=== PATIENT | female | born 1970 | race African-American/Black ===

== ENCOUNTER 2025-04-15 16:46 | Emergency (ER) | payer BC, SELFPAY ==
--- OUTSIDE RECORDS SUMMARY | 2024-04-27 04:38 | XMS_ITS | Continuity of Care Document ---
Author Organization [facility] Address [address] [place] [address] Phone Care Team Providers Care Society Editor Name Role Phone Grace Deluna MD Unavailable Unavailable Advance Directives Directive Yes / No Effective Date File Name No Information Encounters Encounter Description Practice Location Reason(s) For Visit Diagnoses Date Provider Providers Copied on Encounter [facility], [address], [place], [place], [id number], [place] tel:[phone] [facility] No Information Mikie Edwards. [address], [address], [place], [place], [id number], [place]. tel:[phone] Family History Family Member Type Diagnosis Age At Onset No Information Payers Payer name Insurance type Covered libertarian ID Authoriza tion(s) No Information Social History Type Description Quantity Date Captured Comments Sex Female Smoking Status No Information Chief Complaint And Reason For Visit No Information Reason For Referral Reason For Referral No Information Plan Of Treatment Date Type Action Status Appointment Juana Stewart BOOKED History Of Present Illness Encounter Date Complaint History Of Prese nt Illness No Information Functional Status Date Functional Assessmen t No Information Instructions Date Instruction Additional Infor mation No Information Assessments Type Assessment Date No Information Patient Care Teams Name Effective Dates (start - stop) Status Members No Information
--- OUTSIDE RECORDS SUMMARY | 2024-04-27 04:38 | XMS_ITS | Continuity of Care Document ---
Author Organization [facility] Address [address] [place] [address] Phone Care Team Providers Care Grape Picker Name Role Phone Grace Deluna MD Unavailable Unavailable Advance Directives Directive Yes / No Effective Date File Name No Information Encounters Encounter Description Practice Location Reason(s) For Visit Diagnoses Date Provider Providers Copied on Encounter [facility], [address], [place], [place], [id number], [place] tel:[phone] [facility] No Information Mikie Edwards. [address], [address], [place], [place], [address], [place]. tel:[phone] Family History Family Member Type Diagnosis Age [...]
[2025-04-15 16:46] VITALS: BP 136/83; PULSE 60; RESP 15; TEMP 36.4; O2SAT 14
[2025-04-15 17:01] VITALS: O2SAT 100
--- NOTE | 2025-04-15 17:37 | ED_ITS ---
HPI - Allergic Reaction General Chief complaint: Allergic Reaction Stated complaint: ALLERGIC REACTION Time Seen by Provider: 04/15/25 16:54 History of Present Illness HPI narrative: Patient is a 54-year-old female who presents to the ER after consuming shellfish at a restaurant. She reports she has a known allergy to shellfish so she carries an EpiPen. Patient reports shortly afterwards she started experiencing lip and throat swelling along with nausea and vomiting. She reports she used her EpiPen and did not experience much relief afterwards. Patient's reports EMS brought her to the ER and gave her Benadryl and Zofran during transport. She endorses a history of high blood pressure, high cholesterol, and resolved asthma. Patient denies any chest pain, difficulty swallowing, or feelings of excessive swelling. Related Data Allergies Allergy/AdvReac Type Severity Reaction Status Date / Time shellfish derived Allergy Severe Anaphylaxis Verified 04/15/25 16:54 Review of Systems Review of Systems: All systems reviewed & are unremarkable except as noted in HPI and below Exam Narrative: GENERAL: Well appearing, well-nourished, non-toxic, in no acute distress. HEAD: Normocephalic, atraumatic. No visible throat swelling NECK: Supple. No adenopathy, no masses. RESPIRATORY: Airway patent, respirations mildly labored. Mild stridor, mild wheezing CARDIOVASCULAR: Regular rate and rhythm without murmurs, rubs, or gallops. Peripheral pulses 2+ and equal bilaterally. ABDOMINAL: Soft, nontender, nondistended, no hepatosplenomegaly. Normoactive BS. MUSCULOSKELETAL: Moves all extremities. Strength/ROM intact without gross deformities. SKIN: Warm, dry, normal color. No rashes. NEURO: A&O X3. Speech clear. Cranial nerves II-XII intact. No ataxic movements. PSYCHIATRIC: Appropriate mood and affect. Normal interaction. Course Vital Signs Vital signs: Vital Signs Temperature 36.4 C 04/15/25 16:46 Pulse Rate 60 04/15/25 16:46 Respiratory Rate 15 04/15/25 16:46 Blood Pressure 136/83 04/15/25 16:46 Pulse Oximetry 14 L 04/15/25 16:46 Oxygen Delivery Autopap 04/15/25 16:46 Temperature 36.7 C 04/15/25 19:06 Pulse Rate 66 04/15/25 19:06 Respiratory Rate 15 04/15/25 19:06 Blood Pressure 154/85 H 04/15/25 19:06 Pulse Oximetry 100 04/15/25 19:06 Oxygen Delivery Room Air 04/15/25 17:01 MDM - Allergic Reaction MDM Narrative Medical decision making narrative: Patient is a 54-year-old female who presents to the ER after consuming shellfish at a restaurant. She reports she has a known allergy to shellfish so she carries an EpiPen. Patient reports shortly afterwards she started experiencing lip and throat swelling along with nausea and vomiting. She reports she used her EpiPen and did not experience much relief afterwards. Patient's reports EMS brought her to the ER and gave her Benadryl and Zofran during transport. She endorses a history of high blood pressure, high cholesterol, and resolved asthma. Patient denies any chest pain, difficulty swallowing, or feelings of excessive swelling. Labs Ordered: None necessary Imaging Ordered: None necessary Medications Ordered: Benadryl IV, Decadron IV, 1 L normal saline IV bolus, DuoNeb, Pepcid IV Diagnosis: Allergic reaction Patient Education/Shared MDM: Upon evaluation of the EpiPen patient used it was noted the pen was a ?show dog trainer and did not contain medication. This makes sense as to why patient reports she did not feel better after using her EpiPen at the restaurant. Upon reexamination patient endorses significant improvement of symptoms following medication administration. Patient strongly advised to maintain hydration status upon discharge and follow-up with her PCP as soon as possible. She will be discharged home with a prescription for a Medrol Dosepak and EpiPen. Strict return precautions provided. Patient verbalized understanding and is in agreement with plan. Vital signs stable at time of discharge. All questions answered.: Differential Diagnosis Differential diagnosis: Likely anaphylaxis, allergic reaction, angioedema and urticaria Discharge Plan Discharge Clinical Impression: Allergic reaction, Urticaria Patient Disposition: Home Condition: Stable Instructions: Antibiotic Form, Food Allergy (ED), Anaphylaxis (ED) Additional Instructions: Please return to the ER with any worsening symptoms. Follow-up with primary care provider as needed for re-evaluation. Take all medications as prescribed, including regularly scheduled medications. You are prescribed oral and inhaled steroids to help decrease inflammation. Please use your epinephrine pen as needed for further anaphylaxis reactions. Patient Language: Panamanian Prescriptions: New methylprednisolone [Medrol (Aditya)] 4 mg tablets,dose pack See Rx Instructions PO .COMPLEX Qty: 21 0RF Rx Instructions: for 6 days albuterol sulfate 90 mcg/actuation HFA aerosol inhaler 2 puff inhalation QID Qty: 6.7 0RF epinephrine [EpiPen 2-Aditya] 0.3 mg/0.3 mL auto-injector 0.3 mg IM Q5-15M PRN (Reason: anaphylaxis) Qty: 2 0RF Rx Instructions: do not exceed 3 doses per episode Follow-up/Referrals: Veto Graves MD [Physician, Family Practice] Referral Note: primary care provider UNKNOWN,DOCTOR [Primary Care Provider] Stand Alone Forms: Work/School Release IP Time of Disposition: 19:21
--- OUTSIDE RECORDS SUMMARY | 2025-04-15 17:44 | XMS_ITS | Encounter Summary ---
Author Organization [facility] Address 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
--- OUTSIDE RECORDS SUMMARY | 2025-04-15 17:44 | XMS_ITS | Encounter Summary ---
Author Organization [facility] Address [address] [place] [address] Care Team Providers Care Abrasive Grinder Name Role Phone Grace Deluna MD Primary Care Prov ider Encounter Details Date Type Department Care Team (Latest Contact Info) Description 08/07/2004 Inpatient Historical HIS PATIENT IN A BED Ирина Sy MD NO ADDRESS ON FILE Alyson Astorga, [facility] FET/PLAC PROB NEC-DELIVERED (Primary Dx) Social History Tobacco Use Types Packs/Day Years Used Date Smoking Tobacco: Never Assessed Comments Unknown Sex and Gender Information Value Date Recorded Sex Assigned at Not on file Legal Sex Female 5:04 AM TAPPER HAND Gender Identity Not on file Sexual Orientation Not on file documented as of this encounter Plan of Treatment Not on file documented as of this encounter Procedures Procedure Name Priority Date/Time Associated Diagnosis Comments CBC WITH DIFFERENTIAL Routine 08/08/2004 10:30 PM TAPPER HAND CBC WITH DIFFERENTIAL Routine 08/08/2004 10:30 PM TAPPER HAND CBC WITH DIFFERENTIAL Routine 08/07/2004 10:46 AM TAPPER HAND CBC WITH DIFFERENTIAL Routine 08/07/2004 10:46 AM TAPPER HAND URINALYSIS W/REFLEX MICROSCOPIC Routine 08/07/2004 10:46 AM TAPPER HAND URIC ACID Routine 08/07/2004 10:46 AM TAPPER HAND AST Routine 08/07/2004 10:46 AM TAPPER HAND LACTATE DEHYDROGENASE Routine 08/07/2004 10:46 AM TAPPER HAND documented in this encounter Results * (ABNORMAL) CBC WITH DIFFERENTIAL (08/08/2004 10:30 PM TAPPER HAND) NEUTROPHILS 77(H) 45 - 70 % INTERFAC E SYSTEM LYMPHOCYTES 19 16 - 45 % INTERFAC E SYSTEM MONOCYTES 4 3 - 13 % INTERFACE SYSTEM EOSINOPHILS 0 0 - 7 % INTERFAC E SYSTEM BASOPHILS 0 0 - 2 % INTERFACE SYSTEM NEUTROPHIL ABSOLUTE 7.08(H) 1.90 - 7.00 K/uL INTERFACE SYSTEM LYMPHOCYTE ABSOLUTE 1.78 0.70 - 4.50 K/uL INTERFACE SYSTEM MONOCYTE ABSOLUTE 0.34 0.10 - 1.30 K/uL INTERFACE SYSTEM EOSINOPHIL ABSOLUTE 0.03 0.00 - 0.70 K/uL INTERFACE SYSTEM BASOPHILS ABSOLUTE 0.01 0.00 - 0.20 K/uL INTERFACE SYSTEM 08/08/2004 10:3 0 PM TAPPER HAND Alyson Bita Astorga [employer] COURTESY CLERK HEMATOLOGY ORDERABLES Fi nal Result INTERFACE SYSTEM Refer to clinic/hospital department * (ABNORMAL) CBC WITH DIFFERENTIAL (08/08/2004 10:30 PM TAPPER HAND) WBC 9.2 4.0 - 9.8 K/uL INTERFACE SYSTEM RBC 3.98 3.90 - 4.90 M/uL INTERFACE SYSTEM HEMOGLOBIN 10.8(L) 11.8 - 14.8 g/dL INTERFACE SYSTEM HEMATOCRIT 33.3(L) 35.5 - 44.0 % INTERFACE SYSTEM MCV 83.7 82.0 - 99.0 fL INTERFACE SYSTEM MCH 27.1(L) 27.2 - 32.6 pg INTERFACE SYSTEM MCHC 32.4 31.5 - 35.5 % INTERFACE SYSTEM RDW 14.3 11.5 - 14.5 % INTERFACE SYSTEM RDW-STDEV 44.0 37.1 - 48.7 fL INTERFACE SYSTEM PLATELETS 217 140 - 350 K/uL INTERFACE SYSTEM MPV 9.1(L) 9.3 - 12.4 fL INTERFACE SYSTEM 08/08/2004 10:3 0 PM TAPPER HAND Alyson Astorga [facility] HEMATOLOGY ORDERABLES Fi nal Result Performing Organization Address [facility]/ZIP Co de Phone Number INTERFACE SYSTEM Refer to clinic/hospital department * (ABNORMAL) URINALYSIS (08/07/2004 10:46 AM TAPPER HAND) COLOR UA Yellow INTERFACE SYSTEM CLARITY UA Slt. Cloudy(A) Clear INTERFACE SYSTEM SPECIFIC GRAVITY UA 1.025 1.001 - 1.035 INTERFACE SYSTEM PH UA 6.0 5.0 - 8.0 INTERFACE SYSTEM LEUKOCYTE ESTERASE UA 2+(A) Negative INTERFACE SYSTEM NITRITE UA Negative Negative INTERFACE SYSTEM PROTEIN UA 1+(A) Negative INTERFACE SYSTEM GLUCOSE UA Negative Negative INTERFACE SYSTEM KETONES UA Negative Negative INTERFACE SYSTEM UROBILINOGEN UA <1 <1 EU INTE RFACE SYSTEM BILIRUBIN UA Negative Negative INTERFA CE SYSTEM BLOOD UA Negative Negative INTERFACE SYSTEM WBC UA 31(H) 0 - 5 /HPF INTERFACE SYSTEM RBC UA 5(H) 0 - 4 /HPF INTERFACE SYSTEM BACTERIA UA 2+(A) None Seen /HPF INTERFACE SYSTEM EPITHELIAL CELLS, URINE Many /HPF INTERFACE SYSTEM 08/07/2004 10:4 6 AM TAPPER HAND Alyson Astorga [employer] STORE COURTESY CLERK URINE ORDERABLES Final R esult Performing Organization Address City/[facility] Co de Phone Number INTERFACE SYSTEM Refer to clinic/hospital department * (ABNORMAL) CBC WITH DIFFERENTIAL (08/07/2004 10:46 AM TAPPER HAND) NEUTROPHILS 79(H) 45 - 70 % INTERFAC E SYSTEM LYMPHOCYTES 17 16 - 45 % INTERFAC E SYSTEM MONOCYTES 3 3 - 13 % INTERFACE SYSTEM EOSINOPHILS 0 0 - 7 % INTERFAC E SYSTEM BASOPHILS 0 0 - 2 % INTERFACE SYSTEM NEUTROPHIL ABSOLUTE 6.94 1.90 - 7.00 K/uL INTERFACE SYSTEM LYMPHOCYTE ABSOLUTE 1.51 0.70 - 4.50 K/uL INTERFACE SYSTEM MONOCYTE ABSOLUTE 0.28 0.10 - 1.30 K/uL INTERFACE SYSTEM EOSINOPHIL ABSOLUTE 0.03 0.00 - 0.70 K/uL INTERFACE SYSTEM BASOPHILS ABSOLUTE 0.01 0.00 - 0.20 K/uL INTERFACE SYSTEM 08/07/2004 10:4 6 AM TAPPER HAND Alyson Fuentesyor [employer] STORE COURTESY CLERK HEMATOLOGY ORDERABLES Fi nal Result Performing Organization Address City/[facility] Co de Phone Number INTERFACE SYSTEM Refer to clinic/hospital department * (ABNORMAL) CBC WITH DIFFERENTIAL (08/07/2004 10:46 AM TAPPER HAND) WBC 8.8 4.0 - 9.8 K/uL INTERFACE SYSTEM RBC 4.21 3.90 - 4.90 M/uL INTERFACE SYSTEM HEMOGLOBIN 11.2(L) 11.8 - 14.8 g/dL INTERFACE SYSTEM HEMATOCRIT 35.8 35.5 - 44.0 % INTERFACE SYSTEM MCV 85.0 82.0 - 99.0 fL INTERFACE SYSTEM MCH 26.6(L) 27.2 - 32.6 pg INTERFACE SYSTEM MCHC 31.3(L) 31.5 - 35.5 % INTERFACE SYSTEM RDW 14.3 11.5 - 14.5 % INTERFACE SYSTEM RDW-STDEV 44.5 37.1 - 48.7 fL INTERFACE SYSTEM PLATELETS 244 140 - 350 K/uL INTERFACE SYSTEM MPV 9.2(L) 9.3 - 12.4 fL INTERFACE SYSTEM 08/07/2004 10:4 6 AM TAPPER HAND Alyson Sunshine Rizwan [employer]ORE COURTESY CLERK HEMATOLOGY ORDERABLES Fi nal Result Performing Organization Address [facility] Phone Number INTERFACE SYSTEM Refer to clinic/hospital department * URIC ACID (08/07/2004 10:46 AM TAPPER HAND) URIC ACID 4.1 2.3 - 6.6 mg/dL INTERFACE SYSTEM 08/07/2004 10:4 6 AM TAPPER HAND Alyson Sunshine [place] [employer] STORE COURTESY CLERK CHEMISTRY ORDERABLES Fin al Result Performing Organization Address City/[facility]/ZIP Co de Phone Number INTERFACE SYSTEM Refer to clinic/hospital department * LACTATE DEHYDROGENASE (08/07/2004 10:46 AM TAPPER HAND) LD (LACTATE DEHYDROGENASE) 152 135 - 214 U/L INTERFACE SYSTEM 08/07/2004 10:4 6 AM TAPPER HAND Alyson Bita Fuentesyor [employer] STORE COURTESY CLERK CHEMISTRY ORDERABLES Fin al Result Performing Organization Address City/[facility] de Phone Number INTERFACE SYSTEM Refer to clinic/hospital department * AST (08/07/2004 10:46 AM TAPPER HAND) AST 12 12 - 32 U/L INTERFAC E SYSTEM 08/07/2004 10:4 6 AM TAPPER HAND Alyson Fuentesyor [employer] STORE COURTESY CLERK CHEMISTRY ORDERABLES Fin al Result Performing Organization Address [facility] Phone Number INTERFACE SYSTEM Refer to clinic/hospital department documented in this encounter Visit Diagnoses Diagnosis Other specified and placental problems affecting management of mother, delivered- Primary documented in this encounter Care Teams Abrasive Grinder Relationship Specialty Start Date End Date Grace Deluna MD PCP - General Family Practice 11/26/18 04/06/24 documented as of this encounter
--- OUTSIDE RECORDS SUMMARY | 2025-04-15 17:44 | XMS_ITS | Encounter Summary ---
Author Organization [facility] Address [address] [place] [address] Care Team Providers Care Professional Nursing Assistant Name Role Phone Grace Deluna MD Primary Care Prov ider Encounter Details Date Type Department Care Team (Late st Contact Info) Description 07/11/2004 Outpatient Historical [facility] Maternal and Ground Floor S [facility] [address] [place] [id number] Julián Sneed MD [address] [place] [address] Social History Tobacco Use Types Packs/Day Years Used Date Smoking Tobacco: Never Assessed Comments Unknown Sex and Gender Information Value Date Recorded Sex Assigned at Not on file 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
--- OUTSIDE RECORDS SUMMARY | 2025-04-15 17:44 | XMS_ITS | Encounter Summary ---
Author Organization [facility] [employer] Address 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
--- OUTSIDE RECORDS SUMMARY | 2025-04-15 17:44 | XMS_ITS | Encounter Summary ---
Author Organization [facility] Address [address] [place] [address] Care Team Providers Care Breast Puller Name Role Phone Grace Deluna MD Primary Care Prov ider Encounter Details Date Type Department Care Team (Late st Contact Info) Description 08/07/2004 Outpatient Historical [facility] Maternal and Ground Floor S [facility] [address] [place] [address] Miguelito Alva MD NO ADDRESS ON FILE Social History Tobacco Use Types Packs/Day Years Used Date Smoking Tobacco: Never Assessed Comments Unknown Sex and Gender Information Value Date Recorded Sex Assigned at Not on file Legal Sex Female 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
--- OUTSIDE RECORDS SUMMARY | 2025-04-15 17:44 | XMS_ITS | Encounter Summary ---
Author Organization [facility] Address [address] [place] [address] Care Team Providers Care Medical File Clerk Name Role Phone Grace Deluna MD Primary Care Prov ider Encounter Details Date Type Department Care Team (Late st Contact Info) Description 06/06/2004 Outpatient Historical [facility] Maternal and Ground Floor S [facility] [address] [place] [phone] Julián Sneed MD [address] [place] [address] Social History Tobacco Use Types Packs/Day Years Used Date Smoking Tobacco: Never Assessed Comments Unknown Sex and Gender Information Value Date Recorded Sex Assigned at Not on file Legal Sex Female 5:04 AM CLOTH WINDER Gender Identity Not on file Sexual Orientation Not on file documented as of this encounter Plan of Treatment Not on file documented as of this encounter Visit Diagnoses Not on filedocumented in this encounter Care Teams Medical File Clerk Relationship Specialty Start Date End Date Grace Deluna MD PCP - General Family Practice 11/26/18 04/06/24 documented as of this encounter
--- OUTSIDE RECORDS SUMMARY | 2025-04-15 17:44 | XMS_ITS | Clinical Summary ---
Author Organization [facility] rofessional Office [place] Address [address] [place] [phone] Care Team Providers Care Assistant Corporation Counsel Name Role Phone Unavailable Primary Care Provider Unavailabl e Allergies Active Allergy Reactions Criticality Noted Date Comments Shellfish Containing Products Rash Low 2011 Medications amLODIPine (NORVASC) 5 mg tablet TAKE 1 TABLET(5 MG) BY MOUTH DAILY 90 Tablet 3 3 Active estradioL (Estring) 2 mg (7.5 mcg /24 hour) RingIndication s:Vaginal dryness Insert 1 Device (2 mg) vaginally every 90 days. 1 Ring 3 4 Active tirzepatide, weight loss, (Zepbound) 10 mg/0.5 mL Pen Injector Inject 10 mg by subcutaneous injection every 7 days. 2 mL 3 01/21/2024 12:39 PM CDT 4 Active estradioL (VAGIFEM) 10 mcg tablet Insert 1 (one) tablet into the vagina at bedtime twice weekly. Reasons: dyspareunia 8 Tablet 12 11/25/2024 2:54 PM CDT 4 Active EPINEPHrine (EPIPEN) 0.3 mg/0.3 mL Auto-Injector *Emergency Use* Inject 0.3 mL (0.3 mg) by intramuscular injection one time as needed for anaphylaxis. 2 Each 1 02/06/2024 3:59 PM CDT 4 Active tirzepatide, weight loss, (Zepbound) 12.5 mg/0.5 mL Pen Injector Inject 12.5 mg by subcutaneous injection every 7 days. 2 mL 1 02/06/2024 3:59 PM CDT 4 Active rosuvastatin (CRESTOR) 20 mg tablet Take 1 Tablet (20 mg) by mouth daily. 100 Tablet 4 11/25/2024 2:54 PM CDT 4 Active estradioL (ESTRACE) 0.01% (0.1 mg/g) vaginal cream Insert 1 gram into the vagina at bedtime twice weekly. 42.5 Gram 5 02/18/2025 3:03 PM CDT 5 Active Active Problems Problem Noted Date Diagnosed Date Seasonal allergic rhinitis 01/02/2018 Acute bilateral thoracic back pain 01/02/2018 Menopausal symptoms 04/20/2017 Refused influenza vaccine 08/30/2016 Encounter for routine adult medical exam with abnormal findings 08/30/2016 Benign hypertension 08/30/2016 Assessment & Plan (11/17/2016 9:54 PM CDT): Controlled. Continue current management with diet and exercise alone. Monitor BP. Assessment & Plan (09/15/2016 6:39 PM MUSIC CATALOGUER): Suboptimal control. Medications adjusted. Subacromial bursitis 08/30/2016 Assessment & Plan (11/17/2016 9:53 PM CDT): Improving. Continue current management. Assessment & Plan (09/15/2016 7:04 PM MUSIC CATALOGUER): Suboptimal control. Ibuprofen Mixed hyperlipidemia 08/30/2016 Assessment & Plan (09/15/2016 7:05 PM MUSIC CATALOGUER): Stable. Check labs Resolved Problems Problem Noted Date Diagnosed Date Resolved Date Abdominal wall pain 12/25/2016 04/18/20 17 Assessment & Plan (12/25/2016 2:17 PM CDT): Uncontrolled. See orders and patient instructions. Encounters Date Type Department Care Team Description 02/23/2025 External Device Data ST[facility] ABSTRACTION Provider, Abstract 02/03/2025 External Device Data ST[facility] ABSTRACTION Provider, Abstract 02/02/2025 External Device Data [facility] ABSTRACTION Provider, Abstract from Last 3 Months Immunizations Immunization Administration Dates Next Due (Qinec)(12 YR UP) COVID-19 VACCINE - EMERGENCY USE AUTHORIZATION, MRNA, [id number](PF) 30 MCG/0.3 ML IM SUSP 02/23/2021 Family History Medical History Relation Name Comments Healthy Brother 1 Healthy Brother 2 Healthy Daughter Diabetes Father Hypertension Father Unknown Maternal Grandfather Schizophrenia Maternal Grandmother Unknown Maternal Grandmother Depression Mother Hypertension Mother Unknown Paternal Grandfather Unknown Paternal Grandmother Healthy Sister 1 Healthy Sister 2 Colon Cancer Neg Hx Relation Name Status Comments Brother 1 Alive Brother 2 Alive Daughter Alive Father Maternal Grandfather Maternal Grandmother Mother Paternal Grandfather Paternal Grandmother Sister 1 Alive Sister 2 Alive Social History Tobacco Use Types Packs/Day Years Used Date Smoking Tobacco: Never Smokeless Tobacco: Never Tobacco Cessation:Counseling Given: No Alcohol Use Standard Drinks/Week Comments Not Currently 1 (1 standard drink = 0.6 oz pur e alcohol) occassional/ social drinker Feeling Safe Answer Date Recorded Are you in a relationship wi th someone who hurts you emotionally and/or physically? No 04/29/2023 Comments No Sex and Gender Information Value Date Recorded Sex Assigned at Not on file Legal Sex Female 5:04 AM MUSIC CATALOGUER Gender Identity Not on file Sexual Orientation Not on file Last Filed Vital Signs Vital Sign Reading Time Taken Comments Blood Pressure 109/70 11/07/2023 11:19 AM CDT Pulse 78 11/07/2023 11:19 AM CDT Temperature 36.9 C (98.4 F) 11/07/2023 11:19 AM CDT Respiratory Rate 16 04/08/2023 2:47 PM CDT Oxygen Saturation 99% 11/07/2023 11:19 AM CDT Inhaled Oxygen Concentration - - Weight 78.1 kg (172 lb 3.2 oz) 11/07/2023 11:19 AM CDT Height 170.2 cm (5' 7) 11/07/2023 11:19 AM CDT Body Mass Index 26.97 11/07/2023 11:19 AM CDT Plan of Treatment Health Maintenance Due Date Last Done Comments DTAP/TDAP/TD VACCINES (1 - Tdap) 1987 HEPATITIS B VACCINES (1 of 3 - 19+ 3-dose series) 1987 HPV/Cotest (21-29) 1989 CERVICAL CANCER SCREENING 1998 HPV/Cotest (30-65) 1998 PAP SMEAR 1998 FIT-DNA Q 3 years 2013 FIT/FOBT Q 1 year 2013 Flex Sig/CT Colonography Q 5 years 2013 ZOSTER VACCINE (1 of 2) 2018 BREAST CANCER SCREENING 10/31/2024 11/01/19 24, 11/01/2023, 10/01/2022, Additional history exists INFLUENZA VACCINE (#1) 2025 COVID-19 Vaccine (2024-2 6 season) 2025 03/15/2021, 02/23/2021 COLORECTAL SCREENING 12/19/2028 12/19/2018, 12/19/2018, 12/19/2018, Additional history exists Colorectal Cancer Screening 12/19/2028 Procedures Procedure Name Priority Date/Time Associated Diagnosis Comments COLONOSCOPY REPORT 12/19/2018 10 :12 AM CDT MAMMO SCREEN BILAT W OR WO CAD Routine 07/20/2016 from Last 3 Months or Most Recently Relevant to Health Maintenance Results * COLONOSCOPY REPORT (12/19/2018 10:12 AM CDT) Narrative Procedure Note Josh Sanchez MD - 12/19/2018 10:12 AM CDT [facility] Endoscopy Patient Name: Juana Stewart Procedure Date: 12/19/2018 Date of : 1970 Admit Type: Outpatient Age: 48 Attending MD: Josh Sanchez MD Procedure: Colonoscopy Indications: Colorectal cancer screening, avg risk family history. No prior exam of colon. Providers: Josh Sanchez MD Referring MD: Grace Deluna MD Medicines: TIVA Procedure: Informed consent was obtained for the procedure, including moderate sedation after risks were discussed. Based on the pre-procedure assessment, including review of the patient's medical history, medications, allergies, and review of systems, the patient was deemed to be an appropriate candidate for sedation. A timeout was performed. Continuous ECG monitoring, pulse oximetry, blood pressure monitoring, and direct observation were performed. The Colonoscope was introduced through the anus and advanced to the cecum, identified by appendiceal orifice and ileocecal valve. The colonoscopy was performed without difficulty. The patient tolerated the procedure well. The quality of the bowel preparation was excellent. Estimated Blood Loss: Estimated blood loss was minimal. Findings: Internal hemorrhoids were seen on retroflexion. There was a benign appearing 3 mm diameter diminutive rectal polyp completely removed via cold forceps, likely hyperplastic Remainder appeared normal to the cecum. No evidence for colon cancer or inflammatory bowel disease. Cecum and ileocecal valve well visualized and appeared normal. Complications: No immediate complications. Impression: 1. Internal hemorrhoids 2. 3 mm benign appearing diminutive rectal polyp completely removed via cold forceps, likely hyperplastic. 3. Otherwise normal colonoscopy. No colon cancer or inflammatory bowel disease. Recommendation: Reassurance. Await pathology. Repeat colonoscopy in 10 years for colon cancer screening if polyp is hyperplastic (benign, non-precancerous polyp as suspected). Follow up with Dr. Deluna for medical issues. Josh Sanchez MD 12/19/2018 10:11:55 AM This report has been signed electronically. Number of Addenda: 0 Procedure Date: 12/19/2018 9:32:[address] [place], [place] [id number] Josh Sanchez MD GI PROCEDURE ORDERABLES Final Re sult * MAMMO SCREEN BILAT W OR WO CAD (07/20/2016) Anatomical Region Laterality Modality Breast Bilateral Mammography Alyson Astorga MD MAMMO ORDERABLES Edited Result - Final from Last 3 Months or Most Recently Relevant to Health Maintenance [facility] [employer] RX [employer] (INTERNAL) [facility] Internal Plans Advance Directives For more information, please contact: [phone] * Full Code (Latest Code Status on File) Date Activated Date Inactivated Comments 12/19/2018 8:51 AM 12/19/2018 12:40 PM
--- OUTSIDE RECORDS SUMMARY | 2025-04-15 17:44 | XMS_ITS | Encounter Summary ---
Author Organization [employer] Address [address] [place] [address] Care Team Providers Care Cryptological Technician Name Role Phone Grace Deluna MD Primary Care Prov ider Encounter Details Date Type Department Care Team (Latest Contact Info) Description 03/06/2004 Outpatient Historical [facility] Alyson Astorga, [facility] PREG COMPL NEC-ANTEPART (Primary Dx) Social History Tobacco Use Types Packs/Day Years Used Date Smoking Tobacco: Never Assessed Comments Unknown Sex and Gender Information Value Date Recorded Sex Assigned at Not on file Legal Sex Female 5:04 AM COLORS CUSTODIAN Gender Identity Not on file Sexual Orientation Not on file documented as of this encounter Plan of Treatment Not on file documented as of this encounter Visit Diagnoses Diagnosis Other specified complication, antepartum(646.83)- Primary Other specified complication, antepartum documented in this encounter Care Teams Cryptological Technician Relationship Specialty Start Date End Date Grace Deluna MD PCP - General Family Practice 11/26/18 04/06/24 documented as of this encounter
--- OUTSIDE RECORDS SUMMARY | 2025-04-15 17:44 | XMS_ITS | Encounter Summary ---
Author Organization [facility] Address [address] [place] [address] Care Team Providers Care Flying Teacher Name Role Phone Grace Deluna MD Primary Care Prov ider Encounter Details Date Type Department Care Team (Late st Contact Info) Description 04/03/2004 Outpatient Historical [facility] Maternal and Ground Floor S [facility] [address] [place] [id number] Julián Sneed MD [address] [place] [address] Social History Tobacco Use Types Packs/Day Years Used Date Smoking Tobacco: Never Assessed Comments Unknown Sex and Gender Information Value Date Recorded Sex Assigned at Not on file Legal Sex Female 5:04 AM TABLE WORKER PACKAGER Gender Identity Not on file Sexual Orientation Not on file documented as of this encounter Plan of Treatment Not on file documented as of this encounter Visit Diagnoses Not on filedocumented in this encounter Care Teams Flying Teacher Relationship Specialty Start Date End Date Grace Deluna MD PCP - General Family Practice 11/26/18 04/06/24 documented as of this encounter
--- OUTSIDE RECORDS SUMMARY | 2025-04-15 17:44 | XMS_ITS | Encounter Summary ---
Author Organization [employer] Address [address] [place] [address] Care Team Providers Care Hardware Installation Coordinator Name Role Phone Grace Deluna MD Primary Care Prov ider Encounter Details Date Type Department Care Team (Late st Contact Info) Description 04/07/2004 Outpatient Historical [facility] Alyson Astorga, [facility] Social History Tobacco Use Types Packs/Day Years Used Date Smoking Tobacco: Never Assessed Comments Unknown Sex and Gender Information Value Date Recorded Sex Assigned at Not on file Legal Sex Female 5:04 AM NUTRITION TECH Gender Identity Not on file Sexual Orientation Not on file documented as of this encounter Plan of Treatment Not on file documented as of this encounter Visit Diagnoses Not on filedocumented in this encounter Care Teams Hardware Installation Coordinator Relationship Specialty Start Date End Date Grace Deluna MD PCP - General Family Practice 11/26/18 04/06/24 documented as of this encounter
--- OUTSIDE RECORDS SUMMARY | 2025-04-15 17:44 | XMS_ITS | Encounter Summary ---
Author Organization [facility] Address [address] [place] [address] Care Team Providers Care Pulmonary Care Nurse Name Role Phone Grace Deluna MD Primary Care Prov ider Encounter Details Date Type Department Care Team (Late st Contact Info) Description 01/07/2004 Outpatient Historical [facility] Maternal and Ground Floor [address] [place] [address] [place] [phone] Jonathan Wallace MD [address] [address] Social History Tobacco Use Types Packs/Day Years Used Date Smoking Tobacco: Never Assessed Comments Unknown Sex and Gender Information Value Date Recorded Sex Assigned at Not on file Legal Sex Female 5:04 AM SUPERVISOR LEAD REFINERY Gender Identity Not on file Sexual Orientation Not on file documented as of this encounter Plan of Treatment Not on file documented as of this encounter Visit Diagnoses Not on filedocumented in this encounter Care Teams Pulmonary Care Nurse Relationship Specialty Start Date End Date Grace Deluna MD PCP - General Family Practice 11/26/18 04/06/24 documented as of this encounter
--- OUTSIDE RECORDS SUMMARY | 2025-04-15 17:44 | XMS_ITS | Encounter Summary ---
Author Organization [facility] Address [address] [place] [address] Care Team Providers Care Food Dehydrator Operator Name Role Phone Grace Deluna MD Primary Care Prov ider Encounter Details Date Type Department Care Team (Late st Contact Info) Description 03/06/2004 Outpatient Historical [facility] Maternal and Ground Floor S [facility] [address] [place] [phone] Julián Sneed MD [address] [place] [address] Social History Tobacco Use Types Packs/Day Years Used Date Smoking Tobacco: Never Assessed Comments Unknown Sex and Gender Information Value Date Recorded Sex Assigned at Not on file Legal Sex Female 5:04 AM POULTRY EVISCERATOR Gender Identity Not on file Sexual Orientation Not on file documented as of this encounter Plan of Treatment Not on file documented as of this encounter Visit Diagnoses Not on filedocumented in this encounter Care Teams Food Dehydrator Operator Relationship Specialty Start Date End Date Grace Deluna MD PCP - General Family Practice 11/26/18 04/06/24 documented as of this encounter
--- OUTSIDE RECORDS SUMMARY | 2025-04-15 17:44 | XMS_ITS | Encounter Summary ---
Author Organization [employer] Address [address] [place] [address] Care Team Providers Care Animal Control Officer Name Role Phone Grace Deluna MD Primary Care Prov ider Encounter Details Date Type Department Care Team (Latest Contact Info) Description 01/07/2004 Outpatient Historical [facility] Alyson Astorga, [facility] ANTEPARTUM HEMORR NOS-ANTEPAR (Primary Dx) Social History Tobacco Use Types Packs/Day Years Used Date Smoking Tobacco: Never Assessed Comments Unknown Sex and Gender Information Value Date Recorded Sex Assigned at Not on file Legal Sex Female 5:04 AM DOWN FILLER Gender Identity Not on file Sexual Orientation Not on file documented as of this encounter Plan of Treatment Not on file documented as of this encounter Visit Diagnoses Diagnosis Unspecified antepartum hemorrhage, antepartum- Primary documented in this encounter Care Teams Animal Control Officer Relationship Specialty Start Date End Date Grace Deluna MD PCP - General Family Practice 11/26/18 04/06/24 documented as of this encounter
--- OUTSIDE RECORDS SUMMARY | 2025-04-15 17:44 | XMS_ITS | Encounter Summary ---
Author Organization [employer] Address [address] [place] [address] Care Team Providers Care Dental Hygienist Mobile Coordinator Name Role Phone Grace Deluna MD Primary Care Prov ider Encounter Details Date Type Department Care Team (Late st Contact Info) Description 10/24/2006 Emergency [facility] Mao Zhang MD NO ADDRESS ON FILE Er, Authorized P NO ADDRESS ON FILE Syncope and Collapse (Primary Dx) Social History Tobacco Use Types Packs/Day Years Used Date Smoking Tobacco: Never Assessed Comments Unknown Sex and Gender Information Value Date Recorded Sex Assigned at Not on file Legal Sex Female 5:04 AM RETAIL STORE ASSOCIATE Gender Identity Not on file Sexual Orientation Not on file documented as of this encounter Plan of Treatment Not on file documented as of this encounter Procedures Procedure Name Priority Date/Time Associated Diagnosis Comments CBC WITH DIFFERENTIAL Routine 10/24/2006 1:40 PM CDT CBC WITH DIFFERENTIAL Routine 10/24/2006 1:40 PM CDT C-REACTIVE PROTEIN Routine 10/24/2006 1: 40 PM CDT COMPREHENSIVE METABOLIC PANEL Routine 10/24/2006 1:40 PM CDT documented in this encounter Results * CBC WITH DIFFERENTIAL (10/24/2006 1:40 PM CDT) NEUTROPHILS 68 45 - 70 % INTERFAC E SYSTEM LYMPHOCYTES 24 16 - 45 % INTERFAC E SYSTEM MONOCYTES 7 3 - 13 % INTERFACE SYSTEM EOSINOPHILS 1 0 - 7 % INTERFAC E SYSTEM BASOPHILS 0 0 - 2 % INTERFACE SYSTEM NEUTROPHIL ABSOLUTE 6.18 1.90 - 7.00 K/uL INTERFACE SYSTEM LYMPHOCYTE ABSOLUTE 2.18 0.70 - 4.50 K/uL INTERFACE SYSTEM MONOCYTE ABSOLUTE 0.61 0.10 - 1.30 K/uL INTERFACE SYSTEM EOSINOPHIL ABSOLUTE 0.12 0.00 - 0.70 K/uL INTERFACE SYSTEM BASOPHILS ABSOLUTE 0.02 0.00 - 0.20 K/uL INTERFACE SYSTEM 10/24/2006 1:40 PM CDT Mao Zhang MD HEMATOLOGY ORDERABLES Edited Performing Organization Address City/State/[facility] Co de Phone Number INTERFACE SYSTEM Refer to clinic/hospital department * CBC WITH DIFFERENTIAL (10/24/2006 1:40 PM CDT) WBC 9.1 4.0 - 9.8 K/uL INTERFACE SYSTEM RBC 4.56 3.90 - 4.90 M/uL INTERFACE SYSTEM HEMOGLOBIN 13.0 11.8 - 14.8 g/dL INTERFACE SYSTEM HEMATOCRIT 39.2 35.5 - 44.0 % INTERFACE SYSTEM MCV 86.0 82.0 - 99.0 fL INTERFACE SYSTEM MCH 28.5 27.2 - 32.6 pg INTERFACE SYSTEM MCHC 33.2 31.5 - 35.5 % INTERFACE SYSTEM RDW 13.0 11.5 - 14.5 % INTERFACE SYSTEM RDW-STDEV 40.7 37.1 - 48.7 fL INTERFACE SYSTEM PLATELETS 291 140 - 350 K/uL INTERFACE SYSTEM MPV 9.3 9.3 - 12.4 fL INTERFACE SYSTEM 10/24/2006 1:40 PM CDT Mao Zhang MD HEMATOLOGY ORDERABLES Edited INTERFACE SYSTEM Refer to clinic/hospital department * C-REACTIVE PROTEIN (10/24/2006 1:40 PM CDT) CRP 0.6 0.0 - 0.8 mg/dL INTERFACE SYSTEM 10/24/2006 1:40 PM CDT us Mao Zhang MD CHEMISTRY ORDERABLES Edited INTERFACE SYSTEM Refer to clinic/hospital department * COMPREHENSIVE METABOLIC PANEL (10/24/2006 1:40 PM CDT) GLUCOSE 98 65 - 99 mg/dL INTERFACE SYSTEM CREATININE 0.69 0.51 - 0.95 mg/dL INTERFACE SYSTEM CALCIUM 9.1 8.4 - 10.2 mg/dL INTERFACE SYSTEM ALKALINE PHOSPHATASE 103 35 - 104 U/L INTERFACE SYSTEM AST 19 12 - 32 U/L INTERFACE SYSTEM ALT 10 0 - 31 U/L INTERFACE SYSTEM TOTAL PROTEIN 7.4 6.3 - 8.6 g/dL INTERFACE SYSTEM ALBUMIN 4.0 3.4 - 4.8 g/dL INTERFACE SYSTEM BILIRUBIN TOTAL 0.3 0.2 - 1.0 mg/dL INTERFACE SYSTEM BUN 10 6 - 20 mg/dL INTERFACE SYSTEM SODIUM 135 135 - 145 mmol/L INTERFACE SYSTEM POTASSIUM 3.6 3.5 - 4.9 mmol/L INTERFACE SYSTEM CHLORIDE 100 96 - 108 mmol/L INTERFACE SYSTEM CO2 28 22 - 30 mmol/L INTERFACE SYSTEM GFR, >60 >=60 mL/min/1.7 sq meter INTERFACE SYSTEM GFR >60 >=60 mL/min/1.7 sq meter INTERFACE SYSTEM Comment: Estimated GFR rate interpretative information for both Americans and non- Americans is available on the [facility] Intranet at: [email or web address] Select: Lab Policies and Procedures Select: Reference Ranges - GFR 10/24/2006 1:40 PM CDT Mao Zhang MD CHEMISTRY ORDERABLES Edited INTERFACE SYSTEM Refer to clinic/hospital department documented in this encounter Visit Diagnoses Diagnosis Syncope and collapse- Primary documented in this encounter Care Teams Dental Hygienist Mobile Coordinator Relationship Specialty Start Date End Date Grace Deluna MD PCP - General Family Practice 11/26/18 04/06/24 documented as of this encounter
--- OUTSIDE RECORDS SUMMARY | 2025-04-15 17:44 | XMS_ITS | Encounter Summary ---
Author Organization [employer] Address [address] [place] [address] Care Team Providers Care Mold Stripper Name Role Phone Grace Deluna MD Primary Care Prov ider Encounter Details Date Type Department Care Team (Late st Contact Info) Description 08/12/2004 Outpatient Historical [facility] Alyson Astorga, [facility] Social History Tobacco Use Types Packs/Day Years Used Date Smoking Tobacco: Never Assessed Comments Unknown Sex and Gender Information Value Date Recorded Sex Assigned at Not on file Legal Sex Female 5:04 AM SIDE SEAM TENDER Gender Identity Not on file Sexual Orientation Not on file documented as of this encounter Plan of Treatment Not on file documented as of this encounter Visit Diagnoses Not on filedocumented in this encounter Care Teams Mold Stripper Relationship Specialty Start Date End Date Grace Deluna MD PCP - General Family Practice 11/26/18 04/06/24 documented as of this encounter
--- OUTSIDE RECORDS SUMMARY | 2025-04-15 17:44 | XMS_ITS | Clinical Summary ---
Author Organization [facility] Address [address] [place] [address] Care Team Providers Care Food Services Coordinator Name Role Phone Pablo Caldwell MD Primary Care Provider [phone] Source Comments [facility],non-owned Affiliates and Associated Physician Practices is amultiple site organization consisting of ambulatory clinics and hospital sitesin [place], [place], [place] and [place]. This disclosure is being madepursuant to the Care Everywhere program and may not contain all information available regarding this patient. Last updated 18.[facility] Allergies Active Allergy Reactions Criticality Noted Date Comments Shellfish Allergy Anaphylaxis,Urticaria High 012 Medications * Be aware that medications may not be up to date on this document. Alwaysverify current medications with the patient. EPINEPHrine (Epipen) 0.3 MG/0.3ML auto-injector pen Inject 0.3 mL into muscle once as needed for Anaphylaxis 2 Each 1 4 Active rosuvastatin (Crestor) 20 MG tablet Take 1 (one) tablet by mouth once daily 100 tablet 4 4 Active estradiol (Estrace) 0.1 MG/GM vaginal creamIndications :vaginal dryness, dyspareunia Insert 1 g into the vagina at bedtime Twice a week Reasons: vaginal dryness, dyspareunia 42.5 g 5 5 Active Active Problems Problem Noted Date Diagnosed Date Seasonal allergic rhinitis 01/02/201801/16 Menopausal symptoms 04/20/2017 01/16/2023 Benign hypertension 08/30/2016 01/16/2023 Overview (01/16/2023): Last Assessment & Plan: Controlled. Continue current management with diet and exercise alone. Monitor BP. Encounters Date Type Department Care Team Description 03/19/2025 Travel 01/25/2025 8:20 AM CDT Office Visit [facility] - OFFICE ADMIN [id number] [address] Brianna Ashley APRN-BALDO Well woman exam with routine gynecological exam (Primary Dx); Dyspareunia, female; Vaginal dryness, menopausal 01/25/2025 Travel from Last 3 Months Immunizations Immunization Administration Dates Next Due Covid Pfizer primary monoval ent 12+ yr 0.3mL Purple cap 03/15/2021,02/23/2021 Zoster Hzv Vacc Recombinant Inj Im 09/02/2024, Family History Medical History Relation Name Comments CVA Brother 1 Diabetes Brother 1 Other - Cardiac Brother 1 CVA Brother 2 Diabetes - Type 2 Brother 2 CVA Father Diabetes Father Other - Cardiac Father MA Cancer - Breast Maternal Aunt Hypertension Mother Renal Disease Mother Diabetes Sister 1 Relation Name Status Comments Brother 1 Brother 2 Alive Father Maternal Aunt Alive Maternal Grandfather Maternal Grandmother Mother Paternal Grandfather Paternal Grandmother Sister 1 Alive Sister 2 Alive Social History Tobacco Use Types Packs/Day Years Used Date Smoking Tobacco: Never Smokeless Tobacco: Never Tobacco Cessation:Counseling Given: Not Answered Alcohol Use Standard Drinks/Week Comments No 0 (1 standard drink = 0.6 oz pur e alcohol) PHQ-2 Answer Date Recorded Patient Health Questionnaire-2 Score 0 01/25/2025 Education Answer Date Recorded What is the highest level of school you have completed or the highest degree you have received? 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 Not on file Not on file Not on file Last Filed Vital Signs Vital Sign Reading Time Taken Comments Blood Pressure 132/84 01/25/2025 8:20 AM CDT Pulse 61 12/07/2024 9:25 AM CDT Temperature 36.6 C (97.9 F) 12/07/2024 9:25 AM CDT Respiratory Rate 18 12/07/2024 9:25 AM CDT Oxygen Saturation 99% 12/07/2024 9:25 AM CDT Inhaled Oxygen Concentration - - Weight 73.6 kg (162 lb 3.2 oz) 01/25/2025 8:20 A M CDT Height 165.1 cm (5' 5) 01/25/2025 8:20 AM CDT Body Mass Index 26.99 01/25/2025 8:20 AM CDT Plan of Treatment Upcoming Encounters Date Type Department Care Team (Late st Contact Info) Description 01/25/2026 8:30 AM CDT Office Visit [facility] - OFFICE ADMIN [address] [place] [address] Brianna Ashley, JASON-INTERCELL CONNECTOR PLACER [address] [place] [address] Health Maintenance Due Date Last Done Comments COLOGUARD (AGES 45-75) - COLON CA SCREENING [address] COLONOGRAPHY - COLON CA SCREENING 1968 FIT - COLON CA SCREENING 1968 FLEX SIG - COLON CA SCREENING 1968 DTAP/TDAP/TD VACCINES (1 - Tdap) 1987 HEPATITIS B VACCINE (1 of 3 - 19+ 3-dose series) 1987 COVID-19 VACCINE (3 - 2024- season) 2025 03/15/2021, 02/23/2021 INFLUENZA VACCINE (#1) 2025 PNEUMOCOCCAL VACCINE 50+ (1 of 1 - PCV) 09/02/2025 Postponed from 2018 (Patient Refused) MAMMOGRAM 11/20/2026 11/20/2024, 10/20, 11/01/2023, Additional history exists PAP with HPV 01/20/2027 01/21/2024, 07/23, 08/12/2017, Additional history exists SCREENING FOR DIABETES 12/08/2027 5, 06/12/2024, 03/07/2024 COLONOSCOPY - COLON CA SCREENING 12/26/2028 12/26/2018 (Done Outside Per Patient) Colorectal Cancer Screening 12/26/2028 HEPATITIS C SCREENING Completed 03/07/2024 DEPRESSION SCREENING Completed 09/02/2024, 02/06/2024, 01/16/2023 ZOSTER VACCINE Completed 09/02/2024, 06/01/2024 HIB VACCINE Aged Out No longer eligi ble based on patient's age to complete this topic HIV SCREENING Discontinued HPV VACCINE Aged Out No longer eligi ble based on patient's age to complete this topic MENINGOCOCCAL (Group B) VACCINE SHARED DECISION-MAKING Aged Out No longer eligible based on patient's age to complete this topic MENINGOCOCCAL GROUPS A/C/Y/W VACCINE Aged Out No longer eligible based on patient's age to complete this topic Procedures Procedure Name Priority Date/Time Associated Diagnosis Comments BASIC METABOLIC PANEL (CALCIUM TOTAL) Routine 12/07/2024 10:33 AM CDT Right leg pain MAMMO BILAT SCREENING W POLA Routine 11/20/2024 10:11 AM CDT Encounter for screening mammogram for breast cancer HEPATITIS C ANTIBODY Routine 03/07/2024 10:51 AM CDT Need for hepatitis C screening test PAP IG LB +HPV APTIMA REFLEX 16,18/45 Routine 01/21/2024 8:34 AM CDT Well woman exam with routine gynecological exam Screening for HPV (human papillomavirus) from Last 3 Months or Most Recently Relevant to Health Maintenance Results * (ABNORMAL) BASIC METABOLIC PANEL (CALCIUM TOTAL) (12/07/2024 10:33 AM CDT) Glucose 82 70 - 99 mg/dL [facility] ACCOUNT BILL BUN 14 7 - 26 mg/dL [facility] ACCOUNT BILL Creatinine 0.76 0.57 - 1.11 mg/dL [facility] ACCOUNT BILL eGFR by CKD-EPI >90 >=90 mL/min/1.7 3 m2 [facility] ACCOUNT BILL Sodium 144 136 - 145 mmol/L [facility] ACCOUNT BILL Potassium 4.8 3.5 - 5.1 mmol/L [facility] ACCOUNT BILL Chloride 109(H) 98 - 107 mmol/L [facility] ACCOUNT BILL CO2 23 22 - 29 mmol/L [facility] ACCOUNT BILL Calcium 9.3 8.4 - 10.4 mg/dL [facility] ACCOUNT BILL Blood BLOOD SPECIMEN / Unknown 12/07/2024 10:33 AM CDT 12/07/2024 Narrative [facility] ACCOUNT BILL - 12/07/2024 11:07 PM CDT Performed at: [facility] [address] [place] [id number] Audit Associate: Sivakumar Leger [facility], Phone: [phone] us Krista Richardson DIGITAL MARKETING SPECIALIST-INTERCELL CONNECTOR PLACER LAB - CHEMISTRY ORDERABL ES Final Result [facility] ACCOUNT BILL [address] [place] [address] * Mammo Bilat Screening [place] (11/20/2024 10:11 AM CDT) Anatomical Region Laterality Modality Breast Bilateral Mammography 11/20/2024 1:25 PM CDT Impressions 11/20/2024 1:36 PM CDT IMPRESSION: No mammographic evidence of malignancy in either breast. ASSESSMENT: BIRADS Category 1: Negative mammogram. RECOMMENDATION: Bilateral screening mammogram in one year. Thank you for allowing us to participate in the care of your patient. [facility] utilizes [employer] as a reminder system to notify patients of their next recommended mammogram. > Interpreting Provider: Cecy Cameron MD on 11/20/2024 1:36 PM Narrative 11/20/2024 1:36 PM CDT EXAMINATION: Digital screening mammogram. Low-dose full-field digital breast tomosynthesis examination was performed with synthetic 2D images. Computer assisted detection was utilized. DATE: 11/20/2024 10:11 AM PRIOR: 2023 and prior mammograms dating back to 2020. BREAST PARENCHYMAL DENSITY: There are scattered areas of fibroglandular density. FINDINGS: No suspicious masses, areas of architectural distortion or microcalcifications are evident on synthetic 2D mammogram or tomosynthesis images. There has been no significant interval change since the prior examination. Eddi Sample MAMMO ORDERABLES Final Result * HEPATITIS C ANTIBODY (03/07/2024 10:51 AM CDT) Hepatitis C Antibody Non Reactive Non Reactive [facility] ACCOUNT BILL Comment: HCV antibody alone does not differentiate between previously resolved infection and active infection. Equivocal and Reactive HCV antibody results should be followed up with an HCV RNA test to support the diagnosis of active HCV infection. FASTING Blood BLOOD SPECIMEN / Unknown 03/07/2024 10:51 AM CDT 03/07/2024 Narrative Resulting Agency Comment [facility]: [facility] [address] [facility] [id number] Pablo Caldwell MD LAB - CHEMISTRY ORDERABLES Fi nal Result [facility] ACCOUNT BILL [address] [place] [address] * PAP IG LB +HPV APTIMA REFLEX 16,18/45 (01/21/2024 8:34 AM CDT) Diagnosis [facility] ACCOUNT BILL Comment:NEGATIVE FOR INTRAEP ITHELIAL LESION OR MALIGNANCY. Specimen Adequacy [facility] ACCOUNT BILL Comment:Satisfactory for naveed luation. No endocervical component is identified. Clinician Provided ICD10 [facility] ACCOUNT BILL Comment: Z01.419 Z11.51 N94.10 Performed by [facility] ACCOUNT BILL Comment:Tripp Ambriz Cytote chnologist (ASCP) Comment . [facility] ACCOUNT BILL Note [facility] ACCOUNT BILL Comment: The Pap smear is a screening test designed to aid in the detection of premalignant and malignant conditions of the uterine cervix. It is not a diagnostic procedure and should not be used as the sole means of detecting cervical cancer. Both false-positive and false-negative reports do occur. . [employer] CPT Code Automation [facility] ACCOUNT BILL Comment: This liquid based ThinPrep(R) pap test was screened with the use of an image guided system. Human papillomavirus Aptima Negative Negative [facility] ACCOUNT BILL Comment: This nucleic acid amplification test detects fourteen high-risk HPV types (16,18,31,33,35,39,45,51,52,56,58,59,66,68) without differentiation. HPV Genotype Reflexed [facility] ACCOUNT BILL Comment:Criteria not met, HP V Genotype not performed. ENTIRE ENDOCERVIX / Unknown 01/21/2024 8:34 AM CDT 01/22/2024 Narrative [facility] ACCOUNT BILL - 01/23/2024 3:08 PM CDT Source.............Cervix;Endocervix No. of containers..01 ThinPrep Vial Resulting Agency Comment Lab Testing performed at: [facility] [id number] Brianna Ashley DIGITAL MARKETING SPECIALIST-INTERCELL CONNECTOR PLACER LAB - PATHOLOGY/CYTOLOGY ORDERABLES Final Result [facility] ACCOUNT BILL [address] [place] [address] from Last 3 Months or Most Recently Relevant to Health Maintenance Insurance [facility] Care Teams Food Services Coordinator Relationship Specialty [place] [address] [place] [id number] PCP - General Family Medicine 02/06/24
--- OUTSIDE RECORDS SUMMARY | 2025-04-15 17:44 | XMS_ITS | Encounter Summary ---
Author Organization [email or web address] Address 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
--- OUTSIDE RECORDS SUMMARY | 2025-04-15 17:45 | XMS_ITS | Encounter Summary ---
Author Organization [facility] Address [address] [place] [address] Care Team Providers Care Shroudman Name Role Phone Grace Deluna MD Primary Care Prov ider Encounter Details Date Type Department Care Team (Late st Contact Info) Description 08/23/2003 Outpatient Historical 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
--- OUTSIDE RECORDS SUMMARY | 2025-04-15 17:45 | XMS_ITS | Encounter Summary ---
Author Organization [employer] Address 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
--- OUTSIDE RECORDS SUMMARY | 2025-04-15 17:45 | XMS_ITS | Encounter Summary ---
Author Organization Address [address] [place] [address] Care Team Providers Care Ward Maid Name Role Phone Grace Deluna MD Primary Care Prov ider Reason for Visit * Reason Comments Results Results Encounter Details Date Type Department Care Team (Late st Contact Info) Description 11/21/2023 Telephone [facility] Primary Care - [address] [place] [address] Grace Deluna MD [address] [facility] [address] [place] [address] Results; Results Social History Tobacco Use Types Packs/Day Years Used Date Smoking Tobacco: Never Smokeless Tobacco: Never Alcohol Use Standard Drinks/Week Comments Not Currently 1 (1 standard drink = 0.6 oz pur e alcohol) occassional/ social drinker Feeling Safe Answer Date Recorded Are you in a relationship wi th someone who hurts you emotionally and/or physically? 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 Message routed to for follow up. Lipid profileworsening. * Telephone Encounter - Pamela Jon - 11/22/2023 2:21 PM CDT Copied from CRM #[id number]. Topic: CPA Information Request - Results >> November 22, 2023 2:16 PM Pamela Jacobo wrote: Caller is requesting information about results from an order. ? Caller Name: Juana Stewart Callback Number: [phone] (mobile) Test Name: Labs Patient needs to speak with someone regarding her cholesterol results, stating she's concerned. Results Encounter notes are: Reviewed on [facility] patient has additional questions Call Notes: Results were reviewed by the patient on [facility] has additional questions * Telephone Encounter - Adele Schrader - 11/21/2023 9:40 AM CDT Copied from [facility] #[id number]. Topic: CPA Information Request - Results >> November 21, 2023 9:39 AM Adele Marshall wrote: Caller is requesting information about results from an order. ? Caller Name: Juana Stewart Callback Number: [phone] (home) Test Name: Blood tests Results Encounter notes are: Reviewed on [facility] patient has additional questions, patient sent in her test results from [employer] in a [facility] Message. Would like a call back to discuss a plan for her care. Call Notes: Results were not given and the patient needs a call back documented in this encounter Plan of Treatment Not on file documented as of this encounter Visit Diagnoses Not on filedocumented in this encounter Care Teams Ward Maid Relationship Specialty Start Date End Date Grace Deluna MD PCP - General Family Practice 11/26/18 04/06/24 documented as of this encounter
--- OUTSIDE RECORDS SUMMARY | 2025-04-15 17:45 | XMS_ITS | Encounter Summary ---
Author Organization [facility] Address [address] [place] [address] Care Team Providers Care Relocation Commissioner Name Role Phone Grace Deluna MD Primary Care Prov ider Encounter Details Date Type Department Care Team (Latest Contact Info) Description 08/08/2001 Outpatient Historical [facility] Britton Sharma MD [address] [place] [address] HEARING LOSS NOS (Primary Dx) Social History Tobacco Use Types Packs/Day Years Used Date Smoking Tobacco: Never Assessed Comments Unknown Sex and Gender Information Value Date Recorded Sex Assigned at Not on file Legal Sex Female 5:04 AM APRN Gender Identity Not on file Sexual Orientation Not on file documented as of this encounter Plan of Treatment Not on file documented as of this encounter Visit Diagnoses Diagnosis Unspecified hearing loss- Primary documented in this encounter Care Teams Relocation Commissioner Relationship Specialty Start Date End Date Grace Deluna MD PCP - General Family Practice 11/26/18 04/06/24 documented as of this encounter
[2025-04-15 17:48] VITALS: PULSE 51; RESP 15
[2025-04-15] MEDS: IPRATROPIUM 0.5 MG/ALBUTEROL SULFATE 2.5 MG AMPUL.NEB 3 ML INHALATION (17:48)
[2025-04-15] MEDS: SODIUM CHLORIDE 0.9% IV 1,000 ML 999 ML IV CONT (17:49)
[2025-04-15] MEDS: dexAMETHasone SOD PHOS INJ 10 MG/ML 1 ML VIAL IV PUSH (17:50)
[2025-04-15] MEDS: FAMOTIDINE 20 MG/2 ML VIAL IV PUSH (17:50)
[2025-04-15 17:51] VITALS: PULSE 63; RESP 15
[2025-04-15 19:06] VITALS: BP 154/85; PULSE 66; RESP 15; TEMP 36.7; O2SAT 100
[2025-04-15 19:31] VITALS: BP 139/76; PULSE 74; RESP 16; TEMP 36.7; O2SAT 100
== END 2025-04-15 19:32 | disposition home or self-care (01) ==
PROVIDERS: Emergency Provider Registered Nurse
DX: T78.40XA Allergy, unspecified, initial encounter (principal); L50.0 Allergic urticaria; X58.XXXA Exposure to other specified factors, initial encounter
CPT/HCPCS: 94640; 96361; 96374; 96375; 99284; J1100; J1200; J7030